=== PATIENT | male | born 2000 | race Caucasian/White ===

== ENCOUNTER 2024-09-08 12:35 | Outpatient (OUT) | payer BC, SELFPAY ==
--- NOTE | 2024-09-08 12:49 | XR_ITS ---
The [address] [address] Patient Name: ARIADNE ESQUIVEL MRN: [id number] date: 2000 Sex: M Assigned Patient Location: [facility] Current Patient Location: Accession/Order Number: [id number] Exam Date: 09/08/2024 12:55 Report Date: 09/09/2024 09:10 At the request of: NUPUR SANTIAGO Procedure: XR elbow RT min 3V PROCEDURE: XR elbow RT min 3V HISTORY: right elbow pain COMPARISON: None. FINDINGS: BONES:No fracture, acute abnormality, or significant arthropathy. SOFT TISSUES:No visible soft tissue swelling. EFFUSION:None visible. OTHER: Negative. XR/XR elbow RT min 3V IMPRESSION: 1. No acute bone abnormality. 2. No articular surface irregularity or significant osteophytes to account for patient's symptoms. Electronically authenticated by: KRYSTA LEWIS Date: 09/09/2024 09:10
== END 2024-09-08 12:36 | disposition home or self-care (01) ==
LOC: RAD 12:44
PROVIDERS: PCP Family Medicine; Visit Provider Family Medicine
DX: M25.521 Pain in right elbow (principal)
CPT/HCPCS: 73080